=== PATIENT | male | born 1950 | race Caucasian/White ===

== ENCOUNTER 2017-03-13 05:38 | Emergency (ER) | payer OTHER ==
[2017-03-13 05:43] VITALS: BP 146/85; BMI 31.5
[2017-03-13] MEDS ORDERED: ZOFRAN INJ 4 MG VIAL ONE (05:46)
[2017-03-13] MEDS ORDERED: NS 1000 ML 1,000 ML ONE (05:52)
[2017-03-13] MEDS ORDERED: TORADOL 30 MG VIAL ONE (05:52)
[2017-03-13] MEDS ORDERED: NS 1000 ML 1,000 ML IV ONE (05:57)
[2017-03-13] MEDS ORDERED: TORADOL 30 MG VIAL IVP ONE (05:57)
[2017-03-13] MEDS ORDERED: ZOFRAN INJ 4 MG VIAL IVP ONE (05:57)
[2017-03-13 06:36] LABS: BASOPHILS % (AUTO) 0.2 % (0.2-1.0); EOSINOPHILS # (AUTO) 0.1 x10^3/uL (0.0-0.2); EOSINOPHILS % (AUTO) 0.5 % (0.9-2.9); HEMATOCRIT 40.6 % (42.0-54.0); HEMOGLOBIN 14.1 g/dL (13.5-18.0); LYMPHOCYTES # (AUTO) 0.7 X10^3/uL (1.3-2.9); MEAN CORPUSCULAR HEMOGLOBIN 29.1 pg (27.0-34.0); MEAN CORPUSCULAR HGB CONC 34.7 g/dL (33.0-35.0); MEAN CORPUSCULAR VOLUME 83.8 fL (80.0-100.0); MEAN PLATELET VOLUME 7.6 fL (7.4-11.0); MONOCYTES # (AUTO) 0.2 x10^3/uL (0.3-0.8); MONOCYTES % (AUTO) 2.2 % (0.0-13.0); NEUTROPHILS # (AUTO) 9.5 x10^3/uL (2.2-4.8); NEUTROPHILS % (AUTO) 90.1 % (42.0-75.0); PLATELET COUNT 112 X10^3/uL (150.0-450.0); RED BLOOD COUNT 4.84 X10^6/uL (4.7-6.0); RED CELL DISTRIBUTION WIDTH 14.1 % (11.6-16.5); WHITE BLOOD COUNT 10.5 X10^3/uL (3.6-10.0)
[2017-03-13 06:43] LABS: BLOOD UREA NITROGEN 16 mg/dL (7-18); CALCIUM 8.1 mg/dL (8.5-10.1); CARBON DIOXIDE 27.9 mmol/L (21-32); CHLORIDE 110 mmol/L (98-107); COR NA(FOR HYPERGLY) 147 mmol/L (136-145); CREATININE 1.14 mg/dL (0.70-1.30); GLUCOSE 134 mg/dL (65-99); SODIUM 146 mmol/L (136-145); TROPONIN I < 0.02 ng/mL (0-1.5); eGFR BLACK RACES > 60 (>60); eGFR NON BLACK RACES > 60 (>60)
--- NOTE | 2017-03-13 06:45 | DR.GENAD ---
HPI - PCP Primary Care Physician: hunter - Complaint/Symptoms Chief Complaint Doctors Comments: Abd pain with nausea and vomiting. Also chest pain and right leg and swelling and low grade fever. Chief Complaint:: pt c/o chills high blood pressure and legs hurting - Nurses notes reviewed Nurses Notes Review: Yes - Source History Provided: Patient - Mode of Arrival Mode of Arrival: Ambulatory - Timing Onset of Chief Complaint: 03/13/17 Came on: At Night - Duration Duration: Intermittent - Severity Severity: Moderate - Associated Signs and Symptoms Associated Signs and Symptoms: fever, nausea , vomiting,and loose stools. <ALIZA HORNER - Last Filed: 03/13/17 06:59> PMH - PMH Past Medical History: Yes Past Medical History: Angina, Anxiety, Diabetes, GERD, Gout, Hypertension, Kidney Stones Past Surgical History: Yes Surgical History: Angioplasty/Stents, Cholecystectomy - Family History History of Family Medical Conditions: Yes Family Medical History: Cancer, [place] - Social History Does any household member use tobacco: No Alcohol Use: None Do you use any recreational Drugs:: No Lives With: Family Lives Where: Home - infectious screening In the last 2 months have you had wt loss of >10#?: NO Have you had fever, night sweats or hemotysis?: No Have you traveled outside the country in the last 6 months?: No Isolation: Standard <ALIZA HORNER - Last Filed: 03/13/17 06:59> ROS - Review of Systems Constitutional: Chills, Fever Eyes: No Symptoms Reported ENTM: No Symptoms Reported Respiratoy: Short of Breath Cardiovascular: Chest Pain Gastrointestinal/Abdominal: Nausea, Vomiting Genitourinary: No Symptoms Reported Neurological: No Symptoms Reported Musculoskeletal: Right, Leg Integumentary: Change in Color Hematologic/Lymphatic: Blood Clots Endocrine: No Symptoms Reported Psychiatric: No Symptoms Reported All Other Systems: Reviewed and Negative <ALIZA HORNER - Last Filed: 03/13/17 06:59> PE - General Limitations: No Limitations General Appearance: Alert, In No Apparent Distress - Head Head Exam: Normal Inspection - Eyes Eye exam: Normal Appearance, PERRL, EOMI - ENT ENT Exam: Normal Exam, Mucous Membranes Moist External Ear Exam: Normal External Inspection TM/Canal Exam: Bilateral Normal Throat Exam: Normal Inspection - Neck Neck Exam: Normal Inspection - Chest Chest Inspection: Normal Inspection - Respiratory Respiratory Exam: Normal Lung Sounds Bilat Respiratory Exam: Bilateral Clear to Auscultation - Cardiovascular Cardiovascular Exam: Regular Rate, Normal Rhythm, Normal Heart Sounds - Abdominal Exam Abdominal Exam: Normal Inspection, Normal Bowel Sounds, Soft - Extremities Extremities Exam: Tenderness, Edema, Calf Tenderness, Other (R leg redness and superficial bruising with TTP) - Psychiatric Psychiatric Exam: Normal Affect, Normal Mood - Skin Skin Exam: Warm, Dry, Intact, Erythema <ALIZA HORNER - Last Filed: 03/13/17 06:59> MDM - Additional Information Additional Information Obtained From: Family - Differential Diagnosis Differential Diagnosis: PHLEBITIS, UTI, ABDOMINAL PAIN, PE, DVT <TAWANNA GARCIA - Last Filed: 03/13/17 21:32> Course - Treatment Treatment: PATIENT CONTINUE TO VOMIT. DO NOT WISH TO BE ADMITTED. DISCHARGE WITH ZOFRAN AND CIPRO. - Consultation Consultation Comments: DR. SALOMON IN ED AND SAW PATIENT. - Education/Counseling Education/Counseling: Patient, Family, Education Educated On: Diagnosis, Needs for Follow Up <TAWANNA GARCIA - Last Filed: 03/13/17 21:32> ROR - Labs Reviewed Result Diagrams: 03/13/17 06:10 03/13/17 06:10 <ALIZA HORNER - Last Filed: 03/13/17 06:59> - Labs Reviewed Laboratory Results Reviewed?: Yes Result Diagrams: 03/13/17 06:10 03/13/17 06:10 - XRAY XRAY Interpreted by: Radiologist XRAY Findings: REPORT DISCUSS WITH PATIENT. - EKG Rhythm: ST <TAWANNA GARCIA - Last Filed: 03/13/17 21:32> - Labs Reviewed Laboratory: WBC 10.5 X10^3/uL (3.6-10.0) H 03/13/17 06:10 RBC 4.84 X10^6/uL (4.7-6.0) 03/13/17 06:10 Hgb 14.1 g/dL (13.5-18.0) 03/13/17 06:10 Hct 40.6 % (42.0-54.0) L 03/13/17 06:10 MCV 83.8 fL (80.0-100.0) 03/13/17 06:10 MCH 29.1 pg (27.0-34.0) 03/13/17 06:10 MCHC 34.7 g/dL (33.0-35.0) 03/13/17 06:10 RDW 14.1 % (11.6-16.5) 03/13/17 06:10 Plt Count 112 X10^3/uL (150.0-450.0) L 03/13/17 06:10 Plt Count Comment Adequate (ADEQUATE) 03/13/17 06:10 MPV 7.6 fL (7.4-11.0) 03/13/17 06:10 Neut % 90.1 % (42.0-75.0) H 03/13/17 06:10 Lymph % 7.0 % (21.0-51.0) L 03/13/17 06:10 [place] % 2.2 % (0.0-13.0) 03/13/17 06:10 Eos % 0.5 % (0.9-2.9) L 03/13/17 06:10 Baso % 0.2 % (0.2-1.0) 03/13/17 06:10 Neut # 9.5 x10^3/uL (2.2-4.8) H 03/13/17 06:10 Lymph # 0.7 X10^3/uL (1.3-2.9) L 03/13/17 06:10 [place] # 0.2 x10^3/uL (0.3-0.8) L 03/13/17 06:10 Eos # 0.1 x10^3/uL (0.0-0.2) 03/13/17 06:10 Baso # 0.0 X10^3/uL (0.0-0.1) 03/13/17 06:10 Absolute Nucleated RBC 0.0 /100WBC 03/13/17 06:10 Total Counted 100 03/13/17 06:10 Neutrophils % (Manual) 90 % (39-76) H 03/13/17 06:10 Band Neutrophils % 4 % (0-10) 03/13/17 06:10 Lymphocytes % (Manual) 4 % (13-43) L 03/13/17 06:10 Monocytes % (Manual) 2 % (4-9) L 03/13/17 06:10 Plt Morphology Comment Normal (NORMAL) 03/13/17 06:10 RBC Morphology Normal (NORMAL) 03/13/17 06:10 INR Target Range - 03/13/17 06:10 INR 1.06 (0.8-1.3) 03/13/17 06:10 PTT 29.3 SECONDS (22.9-36.5) 03/13/17 06:10 PTT Comment - 03/13/17 06:10 D-Dimer 1260 ng/mL (0-400) H* 03/13/17 06:10 Sodium 146 mmol/L (136-145) H 03/13/17 06:10 Corrected Sodium 147 mmol/L (136-145) H 03/13/17 06:10 Potassium 3.8 mmol/L (3.5-5.1) 03/13/17 06:10 Chloride 110 mmol/L (98-107) H 03/13/17 06:10 Carbon Dioxide 27.9 mmol/L (21-32) 03/13/17 06:10 BUN 16 mg/dL (7-18) 03/13/17 06:10 Creatinine 1.14 mg/dL (0.70-1.30) 03/13/17 06:10 Est GFR (MDRD) Af Amer > 60 (>60) 03/13/17 06:10 Est GFR (MDRD) Non-Af > 60 (>60) 03/13/17 06:10 Glucose 134 mg/dL (65-99) H 03/13/17 06:10 Calcium 8.1 mg/dL (8.5-10.1) L 03/13/17 06:10 Corrected Calcium 8.7 mg/dL (8.5-10.1) 03/13/17 06:10 Total Bilirubin 0.80 mg/dL (0.2-1.0) 03/13/17 06:10 AST 18 Units/L (15-37) 03/13/17 06:10 ALT 30 Units/L (12-78) 03/13/17 06:10 Alkaline Phosphatase 73 Units/L (46-116) 03/13/17 06:10 Creatine Kinase 24 Units/L (39-308) L 03/13/17 06:10 CK-MB (CK-2) < 1.0 ng/mL (0-4.0) 03/13/17 06:10 CK/CKMB % Calc 4.2 % (<4) 03/13/17 06:10 Troponin I < 0.02 ng/mL (0-1.5) 03/13/17 06:10 Total Protein 6.5 g/dL (6.4-8.2) 03/13/17 06:10 Albumin 3.3 g/dL (3.4-5.0) L 03/13/17 06:10 Globulin 3.2 g/dL (2.5-4.5) 03/13/17 06:10 Albumin/Globulin Ratio 1.0 Ratio (1.1-2.1) L 03/13/17 06:10 Amylase 11 Units/L (25-115) L 03/13/17 06:10 Lipase 74 Units/L (73-393) 03/13/17 06:10 H. pylori IgG Antibody Negative (NEGATIVE) 03/13/17 06:10 Streptococcus Screen Negative (NEGATIVE) 03/13/17 06:17 (ALIZA HORNER) (TAWANNA GARCIA) <ALIZA HORNER - Last Filed: 03/13/17 06:59> <TAWANNA GARCIA - Last Filed: 03/13/17 21:32> - Diagnosis Discharge Problem: Phlebitis Nausea & vomiting Qualifiers: Vomiting type: bilious vomiting Qualified Code(s): R11.14 - Bilious vomiting Abdominal pain Qualifiers: Abdominal location: generalized Qualified Code(s): R10.84 - Generalized abdominal pain - Discharge Plan Disposition: 01 HOME, SELF-CARE Condition: Stable - Follow ups/Referrals Follow ups/Referrals: César Salomon [Primary Care Provider] - 3 days - Instructions Instructions: Phlebitis, [id number] Additional Instructions: RETURN TO ED IF WORSE.
[2017-03-13 06:47] LABS: ALANINE AMINOTRANSFERASE 30 Units/L (12-78); ALBUMIN 3.3 g/dL (3.4-5.0); ALKALINE PHOSPHATASE 73 Units/L (46-116); AMYLASE 11 Units/L (25-115); ASPARTATE AMINO TRANSFERASE 18 Units/L (15-37); CKMB % 4.2 % (<4); COR CA(FOR HYPOALB) 8.7 mg/dL (8.5-10.1); CREATINE KINASE 24 Units/L (39-308); CREATINE KINASE MB < 1.0 ng/mL (0-4.0); LIPASE 74 Units/L (73-393); TOTAL PROTEIN 6.5 g/dL (6.4-8.2)
--- NOTE | 2017-03-13 06:55 | CT ---
HISTORY: Nausea, vomiting Study: CT abdomen pelvis without contrast Comparison: September 04, 2016 Technique: Axial non contrast images with coronal and sagittal reformats. Dose reduction procedures were used with MA/kv adjusted for body size. This examination is limited due to the lack of intraven ous and oral contrast. Findings: The lung bases are clear. The liver, spleen, adrenal glands, and pancreas are within normal limits o nly to the limitations of an unenhanced examination. The patient is status post cholecystectomy. The kidneys are unobstructed. Bilateral 1 millimeter nonobstructing renal calculi are present single on the left and multiple on the right. There is a left renal cyst present. No ureteral calculi are esteban ntified. Calcific atherosclerotic changes present in a nondilated abdominal aorta. No enlarged intra peritoneal or retroperitoneal lymphadenopathy is identified. The appendix is normal. There are no fi ndings suggestive of diverticulitis or colitis. Examination of the pelvis demonstrated no evidence f or pelvic masses, pelvic fluid, or pelvic lymphadenopathy. Multiple bladder calculi are again identi fied varying size from 4 millimeters to 13 millimeters in size. IMPRESSION: Limited examination for the reason noted above No evidence for obstructing ureteral calculi Bilateral tiny nonobstructing renal calculi as described Multiple bladder calculi ranging in size from 4 to 13 millimeters Reported By:
--- NOTE | 2017-03-13 06:56 | RAD ---
HISTORY: Chills, fever Study: Chest one view Comparison: None Findings: The trachea is midline. The cardiac silhouette is unremarkable. The lungs are clear without focal infiltrate or effusion. The bony thorax is unremarkable. IMPRESSION: 1. No acute cardiopulmonary disease. Reported By:
[2017-03-13 07:00] LABS: BAND NEUTROPHILS % 4 % (0-10); PLATELET MORPHOLOGY COMMENT NORMAL (NORMAL)
[2017-03-13] MEDS ORDERED: NS 100 ML IV 100 ML IV ONE (07:00)
--- NOTE | 2017-03-13 07:31 | RAD ---
HISTORY: Right lower extremity pain, injury, bruising Study: Right tibia and fibula two view Comparison: None Findings: There is no evidence for fracture, lytic, or blastic lesion. No abnormal periosteal reaction or soft tissue abnormality is identified. IMPRESSION: No significant abnormality identified Reported By:
--- NOTE | 2017-03-13 07:35 | VAS ---
HISTORY: Right calf pain Study: Right lower extremity venous Doppler Comparison: None TECHNIQUE: Multiple bryan scale and color flow Doppler images of the deep venous system were obtaine d of the Right lower extremity. FINDINGS: The deep venous system of the right lower extremity was evaluated from the level of the common femor al vein through the popliteal vein. Normal color flow and augmentation can be observed. In additio n, normal compression is seen throughout the deep venous system. IMPRESSION: 1. Negative for DVT. Reported By:
--- NOTE | 2017-03-13 07:47 | CT ---
HISTORY: Elevated D-dimer. Bruising to right calf/right leg pain with chills and fever, nausea and v omiting. Study: CTA chest Comparison: No priors Technique: Multiple axial images of the chest were obtained from the thoracic inlet to the upper abd omen during the administration of IV contrast. In addition to standard multi planar reconstructions, MIP reconstructions were performed in coronal and sagittal planes. Dose reduction techniques utili zed automatic exposure control. Findings: The mediastinum does not demonstrate significant pathological lymphadenopathy. There is no pericard ial effusion observed. The thoracic aorta is normal in its contour without evidence for aneurysmal dilatation. bilateral coronary artery calcifications are present. The central pulmonary arterial sys tem does not demonstrate central filling defects to suggest pulmonary emboli. Evaluation of the lung parenchyma reveals mild cylindrical bronchiectasis. No consolidation or effus ion is seen.. No pulmonary nodule or mass can be identified. The bony thorax is unremarkable in it s appearance. The liver and adrenal glands unremarkable. There is a 4 centimeter simple appearing c yst of the left kidney. Gallbladder has been removed.. IMPRESSION: No evidence of thoracic aortic aneurysm or pulmonary embolus. Bilateral coronary artery calcifications. Mild cylindrical bronchiectasis without infiltrate, mass, adenopathy or fluid. Reported By:
[2017-03-13] MEDS ORDERED: ROCEPHIN VIAL 2 GM 2 GM in NS 50 ML IV + SPIKE MINIBAG* 50 ML IV ONE (07:57)
[2017-03-13] MEDS ORDERED: NS 100 ML IV + SPIKE MINIBAG* 100 ML IV ONE (08:02)
[2017-03-13] MEDS ORDERED: ROCEPHIN VIAL 2 GM ONE (08:02)
[2017-03-13] MEDS ORDERED: PHENERGAN INJ 25 MG ONE (09:25)
[2017-03-13] MEDS ORDERED: PHENERGAN INJ 25 MG IM ONE (09:25)
== END 2017-03-13 09:42 | disposition home or self-care (01) ==
LOC: ER 05:38
DX: I80.8 Phlebitis and thrombophlebitis of other sites (principal); R11.14 Bilious vomiting; R10.84 Generalized abdominal pain
CPT/HCPCS: 36415; 71010; 71275; 73590; 74176; 80053; 82150; 82550; 82553; 83690; 84484; 85025; 85378; 85610; 85730; 86677; 87070; 87880; 93005; 93971; 96365; 96372; 96374; 96375; 99283; A4222; J0696; J1885; J2405; J2550

== ENCOUNTER 2017-03-13 19:00 | Inpatient (IN) | payer OTHER ==
[2017-03-13] MEDS ORDERED: NS 1000 ML 1,000 ML IV ONE ×3 (19:53→21:53)
[2017-03-13] MEDS ORDERED: NS 1000 ML 1,000 ML ONE ×3 (19:56→21:04)
[2017-03-13 20:38] VITALS: BMI 31.5
[2017-03-13] MEDS ORDERED: NS 250 ML IV 250 ML IV ONE (20:52)
[2017-03-13] MEDS ORDERED: VANCOMYCIN HCL 1 GM VIAL IV SCH (21:00)
[2017-03-13] MEDS ORDERED: LEVAQUIN PREMIX IV 750 MG 750 MG/150 ML BAG IV SCH (21:00)
[2017-03-13 21:23] LABS: BASOPHILS % (AUTO) 0.2 % (0.2-1.0); EOSINOPHILS % (AUTO) 0.1 % (0.9-2.9); HEMATOCRIT 41.2 % (42.0-54.0); HEMOGLOBIN 14.1 g/dL (13.5-18.0); LYMPHOCYTES # (AUTO) 0.5 X10^3/uL (1.3-2.9); LYMPHOCYTES % (AUTO) 2.6 % (21.0-51.0); MEAN CORPUSCULAR HGB CONC 34.1 g/dL (33.0-35.0); MEAN PLATELET VOLUME 7.9 fL (7.4-11.0); MONOCYTES # (AUTO) 0.6 x10^3/uL (0.3-0.8); NEUTROPHILS # (AUTO) 18.5 x10^3/uL (2.2-4.8); NEUTROPHILS % (AUTO) 94.1 % (42.0-75.0); PLATELET COUNT 97 X10^3/uL (150.0-450.0); RED BLOOD COUNT 4.85 X10^6/uL (4.7-6.0); RED CELL DISTRIBUTION WIDTH 14.2 % (11.6-16.5); WHITE BLOOD COUNT 19.6 X10^3/uL (3.6-10.0)
[2017-03-13 21:33] LABS: ALBUMIN 2.6 g/dL (3.4-5.0); CALCIUM 7.4 mg/dL (8.5-10.1); CARBON DIOXIDE 22.2 mmol/L (21-32); COR CA(FOR HYPOALB) 8.5 mg/dL (8.5-10.1); CREATININE 2.55 mg/dL (0.70-1.30); TOTAL PROTEIN 5.8 g/dL (6.4-8.2)
[2017-03-13 22:04] LABS: BAND NEUTROPHILS % 22 % (0-10); PLATELET MORPHOLOGY COMMENT NORMAL (NORMAL)
[2017-03-13] MEDS: NS 1000 ML 1,000 ML IV SCH (22:06)
[2017-03-14] MEDS ORDERED: TYLENOL 325 MG TAB PO PRN ×2 (02:05→07:24)
[2017-03-14 03:48] LABS: BASOPHILS % (AUTO) 0.2 % (0.2-1.0); HEMATOCRIT 39.7 % (42.0-54.0); HEMOGLOBIN 13.6 g/dL (13.5-18.0); LYMPHOCYTES # (AUTO) 0.4 X10^3/uL (1.3-2.9); LYMPHOCYTES % (AUTO) 2.3 % (21.0-51.0); MEAN CORPUSCULAR HEMOGLOBIN 29.2 pg (27.0-34.0); MEAN CORPUSCULAR HGB CONC 34.3 g/dL (33.0-35.0); MEAN CORPUSCULAR VOLUME 85.1 fL (80.0-100.0); MEAN PLATELET VOLUME 8.1 fL (7.4-11.0); MONOCYTES # (AUTO) 0.3 x10^3/uL (0.3-0.8); MONOCYTES % (AUTO) 1.7 % (0.0-13.0); NEUTROPHILS # (AUTO) 16.9 x10^3/uL (2.2-4.8); NEUTROPHILS % (AUTO) 95.8 % (42.0-75.0); PLATELET COUNT 88 X10^3/uL (150.0-450.0); RED BLOOD COUNT 4.66 X10^6/uL (4.7-6.0); RED CELL DISTRIBUTION WIDTH 14.4 % (11.6-16.5); WHITE BLOOD COUNT 17.6 X10^3/uL (3.6-10.0)
[2017-03-14 04:07] LABS: ALBUMIN 2.5 g/dL (3.4-5.0); CARBON DIOXIDE 21.1 mmol/L (21-32); COR CA(FOR HYPOALB) 8.2 mg/dL (8.5-10.1); CREATININE 2.29 mg/dL (0.70-1.30); TOTAL PROTEIN 5.7 g/dL (6.4-8.2)
[2017-03-14 04:09] LABS: BAND NEUTROPHILS % 29 % (0-10); PLATELET MORPHOLOGY COMMENT NORMAL (NORMAL)
[2017-03-14 04:33] LABS: BILIRUBIN,URINE 1+ (NEGATIVE); BLOOD/HEMOGLOBIN,URINE NEGATIVE (NEGATIVE); GLUCOSE, URINE NEGATIVE (NEGATIVE); KETONES,URINE NEGATIVE (NEGATIVE); LEUKOCYTE ESTERASE ,URINE NEGATIVE (NEGATIVE); NITRITES,URINE NEGATIVE (NEGATIVE); PROTEIN,URINE 2+ (NEGATIVE); UROBILINOGEN,URINE 1+ (NORMAL)
[2017-03-14 04:34] LABS: COLOR,URINE DARK YELLOW (YELLOW)
[2017-03-14 04:38] LABS: APPEARANCE,URINE SLIGHTLY HAZY (CLEAR); BACTERIA,URINE 2+ /HPF (NEGATIVE); RBC,URINE NONE SEEN /HPF (NEGATIVE); SQUAMOUS EPITHELIAL CELL,UR RARE /HPF (NEGATIVE)
[2017-03-14] MEDS: NS 1000 ML 1,000 ML IV SCH ×4 (04:40→21:03)
[2017-03-14] MEDS ORDERED: PHARMACY CONSULT - VANCOMYCIN XX SCH (07:24)
[2017-03-14] MEDS ORDERED: NS 1000 ML 1,000 ML IV ONE (07:24)
[2017-03-14] MEDS ORDERED: CONSULT PHARMACY - ANTIBIOTIC XX SCH ×2 (07:24→16:00)
[2017-03-14] MEDS ORDERED: VANCOMYCIN 1 GM PREMIX (ADDVANTAGE) 250 ML IV SCH (07:24)
[2017-03-14] MEDS: PLAVIX PO SCH (11:40)
[2017-03-14] MEDS: ALBUMIN HUMAN 25%- 100ML 100 ML IV SCH (11:41)
[2017-03-14] MEDS: LOMOTIL PO SCH ×2 (11:45→14:56)
[2017-03-14] MEDS: ZOFRAN INJ 4 MG VIAL IVP PRN (12:40)
--- NOTE | 2017-03-14 13:10 | DR.H&P ---
H&P - History & Physical for Day of: H&P Date: 03/13/17 - Chief Complaint Chief Complaint: RIGHT LEG PAIN AND SWELLING, WEAKNESS, FEVER - Allergies Allergies/Adverse Reactions: Allergies Allergy/AdvReac Type Severity Reaction Status Date / Time No Known Drug Allergies Allergy Verified 03/14/17 06:51 - History of Present Illness History of Present Illness: IS A 66 YEAR OLD PATIENT OF OURS WHO WAS A DIRECT ADMIT FROM HOME. HE PRESENTED TO ME WITH COMPLAINTS OF RIGHT LEG PAIN, CHILLS, WEAKNESS, AND HIGH BLOOD PRESSURE. ON EXAMINATION, RIGHT LEG WAS NOTED WITH REDNESS, TENDERNESS, AND SWELLING. PATIENTS SPOUSE STATED THAT HE HAD BEEN RUNNING A FEVER THROUHOUT THE DAY. PATIENT WAS SEEN IN THE ER EARLIER TODAY AND TREATED FOR CELLULITIS. PATIENT WAS GIVEN THE OPTION FOR ADMISSION, BUT REFUSED. PATIENT WAS SENT HOME FROM ER WITH PRESCRIPTION FOR CIPRO, BUT CALLED ME WHEN HIS PAIN AND SWELLING CONTINUED TO GET WORSE. PLAN TO ADMIT PATIENT FOR FURTHER EVALUATION AND TREATMENT. WE WILL CHECK CBC, CMP, BLOOD CULTURES, AND LACTIC ACID ON ADMISSION. WE WILL START PATIENT ON IVF, LEVAQUIN, AND VANCOMYICIN. - Past Medical History Past Medical History: Angina, Anxiety, COPD, Coronary Artery Disease, Diabetes, Dyslipidemia, GERD, Gout, Hypertension, Kidney Stones, [place] - Past Surgical History Surgical History: Angioplasty/Stents, CABG/Valve Surgery, Cholecystectomy - Family History Family Medical History: Diabetes Mellitus, Cancer, [place] - Social History Does patient currently use any type of tobacco product: No Have you used tobacco products in the last 12 months: No Type of Tobacco Use: None Alcohol Use: Rarely Drug Use: None - Medications Home Medications: Carvedilol 1 tab PO BID 03/13/17 [History Confirmed 03/13/17] Clopidogrel Bisulfate [PLAVIX TAB 75 MG *] 1 tab PO DAILY 03/13/17 [History Confirmed 03/13/17] Glipizide [Glipizide XL 2.5 mg] 1 tab PO DAILY 03/13/17 [History Confirmed 03/13] Niacin [Niacin ER 1000 mg] 1 tab PO HS 03/13/17 [History Confirmed 03/13/17] Rosuvastatin Calcium [Crestor] 10 mg PO HS 03/13/17 [History Confirmed 03/13/17] Zolpidem Tartrate [AMBIEN 10 MG *] 1 tab PO HS 03/13/17 [History Confirmed 03/13] - Review of Systems Constitutional: Chills, Weakness, Malaise Eyes: No Symptoms Reported ENT: No Symptoms Reported Respiratory: No Symptoms Reported Cardiovascular: No Symptoms Reported Gastrointestinal: No Symptoms Reported Genitourinary: No Symptoms Reported Musculoskeletal: Leg Pain Skin: See HPI, Bruising, Wound Neurological: No Symptoms Reported - Physical Exam Vital Signs: Temperature 99.3 F Pulse Rate [Right Radial] 96 Respiratory Rate 15 Blood Pressure [Right Arm] 105/60 Blood Pressure [Left Arm] 149/86 Blood Pressure 146/85 O2 Sat by Pulse Oximetry 99 Oriented: Normal Eyes: Normal Ear: Normal Nose: Normal Throat: Normal Respiratory: Clear Throughout Cardiovascular: Normal : Normal Auscultation: Bowel Sounds: Normal Palpation: Normal Skin: Tender, Hot, Wound, Bruising Musculoskeletal: Leg, Swelling, Tender Psychiatric: Normal Mood Description: Calm Affect: Angry, Normal Speech Pattern: Clear - Assessment/Plan (1) Cellulitis Qualifiers: Site of cellulitis: other site Site of cellulitis of extremity: S Site of cellulitis of trunk: S Laterality: L Qualified Code(s): L03.818 - Cellulitis of other sites Status: Acute Plan: LEVAQUIN, VANCOMYCIN, MONITOR LABS, OUTLINE AREAS OF REDNESS (2) Weakness generalized Status: Acute Plan: IVF, CHECK LABS,CONTINUE TO MONITOR
--- NOTE | 2017-03-14 13:22 | PCM.PROG ---
Progress Note - Progress Note for Day of Date: 03/14/17 - Subjective Subjective: WAS ADMITTED YESTERDAY EVENING WITH RIGHT LOWER LEG CELLULITIS. ON ROUNDS, PATIENT IS ALERT AND ORIENTED. HE COMPLAINS OF PAIN TO RIGHT LEG. HE ALSO HAS COMPLAINTS OF WEAKNESS AND DIARRHEA. ON EXAMINATION, LUNGS CLEAR ON AUSCULTATION. RIGHT LEG IS NOTED WITH REDNESS AND EDEMA. WOUND NOTED TO BACK OF RIGHT LEG. PATIENT AND FAMILY STATED THAT THEY WERE IN THE ERVIN OVER THE PAST FEW DAYS AND PATIENT THINKS THAT HE MAY HAVE SCRAPED HIS LEG ON SOMETHING WHILE HE WAS IN THE WATER. VITALS THIS AM ARE 100.6, 101, 20, 100% , 116/66. LABS REPORT WBC 17.6, CHLORIDE 110, BUN 26, CREATININ 2.29, GFR 30, GLUCOSE 163, CALCIUM 7.0, CRP 169.50, ALBUMIN 2.5. BLOOD CULTURES ARE PENDING. WE WILL ORDER WOUND CULTURE OF RIGHT LEG, START ALBUMIN, AND LOMOTIL FOR DIARRHEA. WE WILL REPEAT LABS AND FOLLOW UP WITH PATIENT IN AM. - Past Medical Family Social History Past Med/Fam/Surg Hx: No changes since H&P Allergies: Allergies No Known Drug Allergies Allergy (Verified 03/14/17 06:51) - Review of Systems ROS: No change since H&P - Vital Signs and I&O's Vital Signs: Temperature 99.3 F Pulse Rate [Right Radial] 96 Respiratory Rate 15 Blood Pressure [Right Arm] 105/60 Blood Pressure [Left Arm] 149/86 Blood Pressure 146/85 O2 Sat by Pulse Oximetry 99 Intake and Output: Intake & Output 03/12/17 03/13/17 03/14/17 03/15/17 11:59 11:59 11:59 11:59 Intake Total 3797 Output Total 300 Balance 3497 - Physical Exam Oriented: Normal Eyes: Normal Ear: Normal Nose: Normal Throat: Normal Cardiovascular: Normal : Normal Auscultation: Bowel Sounds: Normal Palpation: Normal Skin: Tender, Hot, Wound Musculoskeletal: Leg, Swelling, Tender Psychiatric: Normal Mood Description: Calm Affect: Angry, Normal Speech Pattern: Clear - Laboratory and Diagnostics Result Diagrams: 03/14/17 03:18 03/14/17 03:18 Labs: 03/14/17 12:03 Leg - Right Gram Stain - Final Laboratory WBC 17.6 X10^3/uL (3.6-10.0) H 03/14/17 03:18 RBC 4.66 X10^6/uL (4.7-6.0) L 03/14/17 03:18 Hgb 13.6 g/dL (13.5-18.0) 03/14/17 03:18 Hct 39.7 % (42.0-54.0) L 03/14/17 03:18 MCV 85.1 fL (80.0-100.0) 03/14/17 03:18 MCH 29.2 pg (27.0-34.0) 03/14/17 03:18 MCHC 34.3 g/dL (33.0-35.0) 03/14/17 03:18 RDW 14.4 % (11.6-16.5) 03/14/17 03:18 Plt Count 88 X10^3/uL (150.0-450.0) L 03/14/17 03:18 Plt Count Comment Decreased (ADEQUATE) 03/14/17 03:18 MPV 8.1 fL (7.4-11.0) 03/14/17 03:18 Neut % 95.8 % (42.0-75.0) H 03/14/17 03:18 Lymph % 2.3 % (21.0-51.0) L 03/14/17 03:18 [place] % 1.7 % (0.0-13.0) 03/14/17 03:18 Eos % 0.0 % (0.9-2.9) L 03/14/17 03:18 Baso % 0.2 % (0.2-1.0) 03/14/17 03:18 Neut # 16.9 x10^3/uL (2.2-4.8) H 03/14/17 03:18 Lymph # 0.4 X10^3/uL (1.3-2.9) L 03/14/17 03:18 [place] # 0.3 x10^3/uL (0.3-0.8) 03/14/17 03:18 Eos # 0.0 x10^3/uL (0.0-0.2) 03/14/17 03:18 Baso # 0.0 X10^3/uL (0.0-0.1) 03/14/17 03:18 Absolute Nucleated RBC 0.0 /100WBC 03/14/17 03:18 Total Counted 100 03/14/17 03:18 Neutrophils % (Manual) 65 % (39-76) 03/14/17 03:18 Band Neutrophils % 29 % (0-10) H 03/14/17 03:18 Lymphocytes % (Manual) 5 % (13-43) L 03/14/17 03:18 Monocytes % (Manual) 1 % (4-9) L 03/14/17 03:18 Plt Morphology Comment Normal (NORMAL) 03/14/17 03:18 RBC Morphology Normal (NORMAL) 03/14/17 03:18 ESR 10 MM/HOUR (0-15) 03/14/17 03:18 Sodium 141 mmol/L (136-145) 03/14/17 03:18 Corrected Sodium 143 mmol/L (136-145) 03/14/17 03:18 Potassium 4.1 mmol/L (3.5-5.1) 03/14/17 03:18 Chloride 110 mmol/L (98-107) H 03/14/17 03:18 Carbon Dioxide 21.1 mmol/L (21-32) 03/14/17 03:18 BUN 26 mg/dL (7-18) H 03/14/17 03:18 Creatinine 2.29 mg/dL (0.70-1.30) H 03/14/17 03:18 Est GFR (MDRD) Af Amer 37 (>60) L 03/14/17 03:18 Est GFR (MDRD) Non-Af 30 (>60) L 03/14/17 03:18 Glucose 163 mg/dL (65-99) H 03/14/17 03:18 Lactic Acid 3.0 mmol/L (0.4-2.0) H 03/14/17 03:18 Calcium 7.0 mg/dL (8.5-10.1) L 03/14/17 03:18 Corrected Calcium 8.2 mg/dL (8.5-10.1) L 03/14/17 03:18 Total Bilirubin 0.90 mg/dL (0.2-1.0) 03/14/17 03:18 AST 26 Units/L (15-37) 03/14/17 03:18 ALT 31 Units/L (12-78) 03/14/17 03:18 Alkaline Phosphatase 53 Units/L (46-116) 03/14/17 03:18 C-Reactive Protein 169.50 mg/L (0-3.0) H 03/14/17 03:18 Total Protein 5.7 g/dL (6.4-8.2) L 03/14/17 03:18 Albumin 2.5 g/dL (3.4-5.0) L 03/14/17 03:18 Globulin 3.2 g/dL (2.5-4.5) 03/14/17 03:18 Albumin/Globulin Ratio 0.8 Ratio (1.1-2.1) L 03/14/17 03:18 Specimen Type Clean catch urine 03/14/17 04:25 Urine Color Dark yellow (YELLOW) 03/14/17 04:25 Urine Appearance Slightly hazy (CLEAR) 03/14/17 04:25 Urine pH 5.0 (5.0 - 8.0) 03/14/17 04:25 Ur Specific [place] 1.020 (1.000-1.030) 03/14/17 04:25 Urine Protein 2+ (NEGATIVE) 03/14/17 04:25 Urine Glucose (UA) Negative (NEGATIVE) 03/14/17 04:25 Urine Ketones Negative (NEGATIVE) 03/14/17 04:25 Urine Occult Blood Negative (NEGATIVE) 03/14/17 04:25 Urine Nitrite Negative (NEGATIVE) 03/14/17 04:25 Urine Bilirubin 1+ (NEGATIVE) 03/14/17 04:25 Urine Urobilinogen 1+ (NORMAL) 03/14/17 04:25 Ur Leukocyte Esterase Negative (NEGATIVE) 03/14/17 04:25 Urine RBC None seen /HPF (NEGATIVE) 03/14/17 04:25 Urine WBC 0-3 /HPF (NEGATIVE) 03/14/17 04:25 Ur Squamous Epith Cells Rare /HPF (NEGATIVE) 03/14/17 04:25 Urine Bacteria 2+ /HPF (NEGATIVE) 03/14/17 04:25 Ur Culture Indicated? Yes/culture set up 03/14/17 04:25 - Plan (1) Cellulitis Status: Acute Qualifiers: Site of cellulitis: other site Site of cellulitis of extremity: S Site of cellulitis of trunk: S Laterality: L Qualified Code(s): L03.818 - Cellulitis of other sites Plan: LEVAQUIN, VANCOMYCIN, MONITOR LABS, OUTLINE AREAS OF REDNESS (2) Weakness generalized Status: Acute Plan: IVF, CHECK LABS,CONTINUE TO MONITOR
[2017-03-14] MEDS ORDERED: NS 1000 ML 1,000 ML IV SCH (14:00)
[2017-03-14] MEDS: TYLENOL 500 MG TAB EXTRA STRENGTH PO SCH ×2 (14:56→21:00)
[2017-03-14] MEDS ORDERED: VANCOMYCIN HCL 500 MG VIAL 250 MG, VANCOMYCIN HCL 1 GM VIAL 1 GM in D5W 250 ML IV 250 ML IV SCH (15:00)
[2017-03-14] MEDS ORDERED: NS 500 ML IV 500 ML IV ONE (16:12)
[2017-03-14] MEDS: ZOSYN VIAL 3.375 GM 3.375 GM in NS 100 ML IV + SPIKE MINIBAG* 100 ML IV SCH ×2 (16:19→21:06)
[2017-03-14] MEDS: VANCOMYCIN HCL 500 MG VIAL 250 MG, VANCOMYCIN HCL 1 GM VIAL 1 GM in D5W 250 ML IV 250 ML IV SCH (16:31)
[2017-03-14] MEDS ORDERED: NS 500 ML IV 500 ML IV SCH (17:00)
[2017-03-14] MEDS: CRESTOR TAB 10 MG PO SCH (21:00)
[2017-03-14] MEDS ORDERED: ROSUVASTATIN CALCIUM 10 MG PO SCH (21:00)
[2017-03-14] MEDS: NIASPAN ER TAB 500 MG PO SCH (21:00)
[2017-03-14] MEDS ORDERED: NIACIN PO SCH (21:00)
[2017-03-15] MEDS: ZOFRAN INJ 4 MG VIAL IVP PRN ×2 (00:28→18:54)
[2017-03-15] MEDS: TYLENOL 500 MG TAB EXTRA STRENGTH PO SCH ×2 (02:03→09:23)
[2017-03-15 03:54] LABS: BASOPHILS % (AUTO) 0.2 % (0.2-1.0); HEMATOCRIT 35.9 % (42.0-54.0); HEMOGLOBIN 12.4 g/dL (13.5-18.0); LYMPHOCYTES # (AUTO) 0.5 X10^3/uL (1.3-2.9); LYMPHOCYTES % (AUTO) 4.6 % (21.0-51.0); MEAN CORPUSCULAR HEMOGLOBIN 29.6 pg (27.0-34.0); MEAN CORPUSCULAR HGB CONC 34.7 g/dL (33.0-35.0); MEAN CORPUSCULAR VOLUME 85.3 fL (80.0-100.0); MONOCYTES # (AUTO) 0.3 x10^3/uL (0.3-0.8); MONOCYTES % (AUTO) 2.3 % (0.0-13.0); NEUTROPHILS # (AUTO) 10.5 x10^3/uL (2.2-4.8); NEUTROPHILS % (AUTO) 92.9 % (42.0-75.0); PLATELET COUNT 64 X10^3/uL (150.0-450.0); RED BLOOD COUNT 4.21 X10^6/uL (4.7-6.0); RED CELL DISTRIBUTION WIDTH 14.4 % (11.6-16.5); WHITE BLOOD COUNT 11.3 X10^3/uL (3.6-10.0)
[2017-03-15 03:55] LABS: ALBUMIN 2.7 g/dL (3.4-5.0); CALCIUM 6.8 mg/dL (8.5-10.1); COR CA(FOR HYPOALB) 7.8 mg/dL (8.5-10.1); CREATININE 1.77 mg/dL (0.70-1.30); TOTAL PROTEIN 5.8 g/dL (6.4-8.2)
[2017-03-15 04:01] LABS: LACTIC ACID 1.9 mmol/L (0.4-2.0)
[2017-03-15 04:10] LABS: C-REACTIVE PROTEIN 270.7 mg/L (0-3.0)
[2017-03-15 04:18] LABS: BAND NEUTROPHILS % 37 % (0-10); PLATELET MORPHOLOGY COMMENT NORMAL (NORMAL)
[2017-03-15] MEDS: NS 1000 ML 1,000 ML IV SCH (05:05)
[2017-03-15 05:07] LABS: ERYTHROCYTE SEDIMENTATION RATE 18 MM/HOUR (0-15)
[2017-03-15] MEDS: LOMOTIL PO SCH ×3 (05:35→22:00)
[2017-03-15] MEDS: ZOSYN VIAL 3.375 GM 3.375 GM in NS 100 ML IV + SPIKE MINIBAG* 100 ML IV SCH ×3 (05:36→21:21)
[2017-03-15] MEDS ORDERED: XANAX PO ONE (07:20)
[2017-03-15] MEDS ORDERED: XANAX PO PRN ×3 (07:21→09:37)
[2017-03-15] MEDS ORDERED: LEVAQUIN PREMIX IV 750 MG 750 MG/150 ML BAG IV SCH ×2 (09:00)
[2017-03-15] MEDS: PLAVIX PO SCH (09:24)
[2017-03-15] MEDS ORDERED: TORADOL 15 MG VIAL IVP PRN (09:26)
[2017-03-15] MEDS ORDERED: PERCOCET TAB 5/325 MG PO PRN (09:26)
[2017-03-15] MEDS ORDERED: PHARMACY CONSULT - TPN XX SCH (10:00)
[2017-03-15] MEDS: VANCOMYCIN HCL 500 MG VIAL 250 MG, VANCOMYCIN HCL 1 GM VIAL 1 GM in D5W 250 ML IV 250 ML IV SCH (10:38)
--- NOTE | 2017-03-15 11:12 | PCM.PROG ---
Progress Note - Progress Note for Day of Date: 03/15/17 - Subjective Subjective: WAS ADMITTED WITH RIGHT LOWER LEG CELLULITIS. ON ROUNDS, PATIENT IS ALERT AND ORIENTED AND SITTING UP IN RECLINER. HE COMPLAINS OF PAIN TO BACK OF RIGHT LEG. HE ALSO HAS COMPLAINTS OF WEAKNESS. FAMILY STATES THAT PATIENT WAS RESTLESS THROUGHOUT THE NIGHT. ON EXAMINATION, LUNGS CLEAR ON AUSCULTATION. RIGHT LEG IS NOTED WITH REDNESS AND EDEMA. WOUND NOTED TO BACK OF RIGHT LEG, DRAINING. VITALS THIS AM ARE 98.9, 89, 20, 98, 126/73. LABS REPORT WBC 11.3, PLT COUNT 64, CHLORIDE 109, BUN 26, CREATININ 1.77, GFR 41, GLUCOSE 125, LACTIC ACID 1.9, CALCIUM 7.8, AST 48, CRP 270.70, ALBUMIN 2.7. BLOOD CULTURES ARE PENDING. WE WILL CONTINUE ALBUMIN, START TPN, TORADOL, XANAX, AND PERCOCET. ANESTHESIA WILL BE CONSULTED FOR PICC LINE PLACEMENT. WE WILL REPEAT LABS AND FOLLOW UP WITH PATIENT IN AM. - Past Medical Family Social History Past Med/Fam/Surg Hx: No changes since H&P Allergies: Allergies No Known Drug Allergies Allergy (Verified 03/14/17 06:51) - Review of Systems ROS: No change since H&P - Vital Signs and I&O's Vital Signs: Temperature 98.9 F Pulse Rate [Right Radial] 87 Respiratory Rate 21 Blood Pressure [Right Arm] 136/80 Blood Pressure [Left Arm] 149/86 Blood Pressure 146/85 O2 Sat by Pulse Oximetry 99 Intake and Output: Intake & Output 03/12/17 03/13/17 03/14/17 03/15/17 11:59 11:59 11:59 11:59 Intake Total 3797 5174 Output Total 300 1175 Balance 3497 3999 - Physical Exam Oriented: Normal Eyes: Normal Ear: Normal Nose: Normal Throat: Normal Cardiovascular: Normal : Normal Auscultation: Bowel Sounds: Normal Skin: Tender, Hot, Wound Musculoskeletal: Leg, Swelling, Tender Psychiatric: Normal Mood Description: Calm Affect: Angry, Normal Speech Pattern: Clear, Appropriate - Laboratory and Diagnostics Result Diagrams: 03/15/17 03:10 03/15/17 03:10 Labs: 03/14/17 12:03 Leg - Right Gram Stain - Final 03/14/17 12:03 Leg - Right Wound Culture - Preliminary 03/14/17 04:25 Urine,Clean Catch Urine Culture - Preliminary 03/14/17 13:27 Stool Stool Culture - Preliminary 03/14/17 13:27 Stool - Final 03/13/17 21:07 Blood Blood Culture - Preliminary Laboratory WBC 11.3 X10^3/uL (3.6-10.0) H 03/15/17 03:10 RBC 4.21 X10^6/uL (4.7-6.0) L 03/15/17 03:10 Hgb 12.4 g/dL (13.5-18.0) L 03/15/17 03:10 Hct 35.9 % (42.0-54.0) L 03/15/17 03:10 MCV 85.3 fL (80.0-100.0) 03/15/17 03:10 MCH 29.6 pg (27.0-34.0) 03/15/17 03:10 MCHC 34.7 g/dL (33.0-35.0) 03/15/17 03:10 RDW 14.4 % (11.6-16.5) 03/15/17 03:10 Plt Count 64 X10^3/uL (150.0-450.0) L 03/15/17 03:10 Plt Count Comment Decreased (ADEQUATE) 03/15/17 03:10 MPV 9.0 fL (7.4-11.0) 03/15/17 03:10 Neut % 92.9 % (42.0-75.0) H 03/15/17 03:10 Lymph % 4.6 % (21.0-51.0) L 03/15/17 03:10 [place] % 2.3 % (0.0-13.0) 03/15/17 03:10 Eos % 0.0 % (0.9-2.9) L 03/15/17 03:10 Baso % 0.2 % (0.2-1.0) 03/15/17 03:10 Neut # 10.5 x10^3/uL (2.2-4.8) H 03/15/17 03:10 Lymph # 0.5 X10^3/uL (1.3-2.9) L 03/15/17 03:10 [place] # 0.3 x10^3/uL (0.3-0.8) 03/15/17 03:10 Eos # 0.0 x10^3/uL (0.0-0.2) 03/15/17 03:10 Baso # 0.0 X10^3/uL (0.0-0.1) 03/15/17 03:10 Absolute Nucleated RBC 0.0 /100WBC 03/15/17 03:10 Total Counted 100 03/15/17 03:10 Neutrophils % (Manual) 52 % (39-76) 03/15/17 03:10 Band Neutrophils % 37 % (0-10) H 03/15/17 03:10 Lymphocytes % (Manual) 9 % (13-43) L 03/15/17 03:10 Monocytes % (Manual) 2 % (4-9) L 03/15/17 03:10 Plt Morphology Comment Normal (NORMAL) 03/15/17 03:10 RBC Morphology Normal (NORMAL) 03/15/17 03:10 ESR 18 MM/HOUR (0-15) H 03/15/17 03:10 Sodium 140 mmol/L (136-145) 03/15/17 03:10 Corrected Sodium 141 mmol/L (136-145) 03/15/17 03:10 Potassium 3.9 mmol/L (3.5-5.1) 03/15/17 03:10 Chloride 109 mmol/L (98-107) H 03/15/17 03:10 Carbon Dioxide 19.0 mmol/L (21-32) L 03/15/17 03:10 BUN 28 mg/dL (7-18) H 03/15/17 03:10 Creatinine 1.77 mg/dL (0.70-1.30) H 03/15/17 03:10 Est GFR (MDRD) Af Amer 49 (>60) L 03/15/17 03:10 Est GFR (MDRD) Non-Af 41 (>60) L 03/15/17 03:10 Glucose 125 mg/dL (65-99) H 03/15/17 03:10 Lactic Acid 1.9 mmol/L (0.4-2.0) 03/15/17 03:10 Calcium 6.8 mg/dL (8.5-10.1) L 03/15/17 03:10 Corrected Calcium 7.8 mg/dL (8.5-10.1) L 03/15/17 03:10 Total Bilirubin 1.10 mg/dL (0.2-1.0) H 03/15/17 03:10 AST 48 Units/L (15-37) H 03/15/17 03:10 ALT 42 Units/L (12-78) 03/15/17 03:10 Alkaline Phosphatase 59 Units/L (46-116) 03/15/17 03:10 C-Reactive Protein 270.70 mg/L (0-3.0) H 03/15/17 03:10 Total Protein 5.8 g/dL (6.4-8.2) L 03/15/17 03:10 Albumin 2.7 g/dL (3.4-5.0) L 03/15/17 03:10 Globulin 3.1 g/dL (2.5-4.5) 03/15/17 03:10 Albumin/Globulin Ratio 0.9 Ratio (1.1-2.1) L 03/15/17 03:10 Specimen Type Clean catch urine 03/14/17 04:25 Urine Color Dark yellow (YELLOW) 03/14/17 04:25 Urine Appearance Slightly hazy (CLEAR) 03/14/17 04:25 Urine pH 5.0 (5.0 - 8.0) 03/14/17 04:25 Ur Specific [place] 1.020 (1.000-1.030) 03/14/17 04:25 Urine Protein 2+ (NEGATIVE) 03/14/17 04:25 Urine Glucose (UA) Negative (NEGATIVE) 03/14/17 04:25 Urine Ketones Negative (NEGATIVE) 03/14/17 04:25 Urine Occult Blood Negative (NEGATIVE) 03/14/17 04:25 Urine Nitrite Negative (NEGATIVE) 03/14/17 04:25 Urine Bilirubin 1+ (NEGATIVE) 03/14/17 04:25 Urine Urobilinogen 1+ (NORMAL) 03/14/17 04:25 Ur Leukocyte Esterase Negative (NEGATIVE) 03/14/17 04:25 Urine RBC None seen /HPF (NEGATIVE) 03/14/17 04:25 Urine WBC 0-3 /HPF (NEGATIVE) 03/14/17 04:25 Ur Squamous Epith Cells Rare /HPF (NEGATIVE) 03/14/17 04:25 Urine Bacteria 2+ /HPF (NEGATIVE) 03/14/17 04:25 Ur Culture Indicated? Yes/culture set up 03/14/17 04:25 Stool Description 3g,galvez,unformed 03/14/17 13:27 Stl Occult Blood (IFOB) Negative (NEGATIVE) 03/14/17 13:27 Stool for White Cells No wbc's seen (None) 03/14/17 13:27 - Plan (1) Cellulitis Status: Acute Qualifiers: Site of cellulitis: other site Site of cellulitis of extremity: S Site of cellulitis of trunk: S Laterality: L Qualified Code(s): L03.818 - Cellulitis of other sites Plan: LEVAQUIN, VANCOMYCIN, ZOSYN, MONITOR LABS, OUTLINE AREAS OF REDNESS (2) Weakness generalized Status: Acute Plan: IVF, CHECK LABS,CONTINUE TO MONITOR (3) Hypoalbuminemia due to protein-calorie malnutrition Status: Acute Plan: ALBUMIN, START TPN, CONTINUE TO MONITOR (4) Anxiety Status: Chronic Plan: CONTINUE ALPRAZOLAM
[2017-03-15] MEDS ORDERED: TYLENOL 325 MG TAB PO PRN (11:15)
[2017-03-15] MEDS ORDERED: NS 1000 ML 1,000 ML IV SCH (14:00)
[2017-03-15] MEDS: ALBUMIN HUMAN 25%- 100ML 100 ML IV SCH (14:57)
[2017-03-15] MEDS ORDERED: LASIX IVP ONE (20:23)
[2017-03-15] MEDS ORDERED: AMBIEN PO SCH (21:00)
[2017-03-15] MEDS ORDERED: XANAX PO SCH (21:00)
[2017-03-15] MEDS: NIASPAN ER TAB 500 MG PO SCH (21:19)
[2017-03-15] MEDS: CRESTOR TAB 10 MG PO SCH (21:20)
[2017-03-15 21:58] LABS: ABG BASE EXCESS -5.2 mmol/L (-2.0-2.0); ABG HCO3 18.8 mmol/L (22-26)
[2017-03-15 21:59] LABS: ABG ALLEN TEST POS; FRACTIONATED INSPIRED OXYGEN 30
--- NOTE | 2017-03-15 22:18 | RAD ---
EXAM: Chest X-ray INDICATION: Shortness of breath COMPARISION: Prior exam from March 13, 2017 TECHNIQUE: Single view FINDINGS: The heart is mildly enlarged and there is central vascular congestion. The interstitial markings are prominent bilaterally. No pneumothorax or pleural effusion. No focal lung parenchymal consolidation identified. The regional skeleton is intact. IMPRESSION: Findings are most characteristic of changes associated congestive heart failure. There is cardiomega ly, central vascular congestion, and interstitial edema. These changes were not present on prior exa m. Reported By:
[2017-03-16 05:21] LABS: ALBUMIN 2.7 g/dL (3.4-5.0); C-REACTIVE PROTEIN 229.9 mg/L (0-3.0); CALCIUM 7.2 mg/dL (8.5-10.1); CARBON DIOXIDE 22.4 mmol/L (21-32); COR CA(FOR HYPOALB) 8.2 mg/dL (8.5-10.1); CREATININE 1.7 mg/dL (0.70-1.30); TOTAL PROTEIN 5.9 g/dL (6.4-8.2)
[2017-03-16 05:33] LABS: LACTIC ACID 1.5 mmol/L (0.4-2.0)
[2017-03-16] MEDS: ZOSYN VIAL 3.375 GM 3.375 GM in NS 100 ML IV + SPIKE MINIBAG* 100 ML IV SCH ×2 (05:39→15:13)
[2017-03-16] MEDS: LOMOTIL PO SCH ×2 (05:40→14:17)
[2017-03-16 06:19] LABS: BASOPHILS % (AUTO) 0.1 % (0.2-1.0); HEMATOCRIT 36.2 % (42.0-54.0); HEMOGLOBIN 12.8 g/dL (13.5-18.0); LYMPHOCYTES # (AUTO) 0.6 X10^3/uL (1.3-2.9); LYMPHOCYTES % (AUTO) 6.6 % (21.0-51.0); MEAN CORPUSCULAR HEMOGLOBIN 29.3 pg (27.0-34.0); MEAN CORPUSCULAR HGB CONC 35.3 g/dL (33.0-35.0); MEAN CORPUSCULAR VOLUME 82.9 fL (80.0-100.0); MEAN PLATELET VOLUME 9.1 fL (7.4-11.0); MONOCYTES # (AUTO) 0.3 x10^3/uL (0.3-0.8); MONOCYTES % (AUTO) 3.2 % (0.0-13.0); NEUTROPHILS # (AUTO) 7.9 x10^3/uL (2.2-4.8); NEUTROPHILS % (AUTO) 90.1 % (42.0-75.0); PLATELET COUNT 51 X10^3/uL (150.0-450.0); RED BLOOD COUNT 4.37 X10^6/uL (4.7-6.0); RED CELL DISTRIBUTION WIDTH 14.7 % (11.6-16.5); WHITE BLOOD COUNT 8.8 X10^3/uL (3.6-10.0)
[2017-03-16 07:12] LABS: BAND NEUTROPHILS % 3 % (0-10); PLATELET MORPHOLOGY COMMENT NORMAL (NORMAL)
[2017-03-16 07:16] LABS: ERYTHROCYTE SEDIMENTATION RATE 18 MM/HOUR (0-15)
[2017-03-16] MEDS ORDERED: PROCALAMINE 3 % 1,000 ML IV SCH ×2 (09:00→15:00)
[2017-03-16] MEDS: VANCOMYCIN HCL 500 MG VIAL 250 MG, VANCOMYCIN HCL 1 GM VIAL 1 GM in D5W 250 ML IV 250 ML IV SCH (09:00)
[2017-03-16] MEDS: PLAVIX PO SCH (09:00)
[2017-03-16] MEDS: ALBUMIN HUMAN 25%- 100ML 100 ML IV SCH (10:55)
[2017-03-16] MEDS ORDERED: K-RIDER 10 MEQ/NS 100 ML 10 MEQ/100 ML BAG IV PRN (10:58)
[2017-03-16] MEDS ORDERED: K-LYTE EFFERVESCENT PO PRN (10:58)
[2017-03-16] MEDS ORDERED: POTASSIUM CHLORIDE LIQ 20 MEQ UDC PO PRN (10:58)
[2017-03-16] MEDS ORDERED: K-DUR TAB 20 MEQ PO PRN (10:58)
[2017-03-16] MEDS ORDERED: MEGACE PO SCH (11:00)
[2017-03-16] MEDS ORDERED: PHARMACY CONSULT - TPN XX SCH (11:00)
[2017-03-16] MEDS ORDERED: PEPCID 20 MG IV PREMIX* 20 MG/50 ML BAG IV SCH (11:00)
[2017-03-16] MEDS ORDERED: XYLOCAINE 1 % (PLAIN) ONE (12:17)
[2017-03-16] MEDS: ZOFRAN INJ 4 MG VIAL IVP PRN (13:24)
--- NOTE | 2017-03-16 13:28 | RAD ---
HISTORY: PICC line placement. Study: Portable chest. Comparison: Chest x-ray dated March 15, 2017. Findings: The trachea is midline. The cardiac silhouette is enlarged but unchanged. Interval placement of a r ight PICC line whose tip is at the right cavoatrial junction. No obvious focal consolidation, pleur al effusion, or pneumothorax. The bony thorax is unremarkable. IMPRESSION: 1. No acute cardiopulmonary disease. 2. Right PICC line that appears to be in good position. Reported By:
--- NOTE | 2017-03-16 13:36 | DR.UPDATE ---
H&P Update History and Physical Update: History and Physical reviewed and patient examined. Changes noted: NO Yes with the following: Agree with H&P from Dr Salomon. will proceed with PICC placement Procedures (ALL) - Central Line Placement PCM.CLCO: written consent Time out performed: Yes Patient placed pm monitor/pulse ox: Yes MD prep: mask, gown, gloves, other Centrial line prep: chlorhexidine scrub Local anesthsia used: lidocane 1% Ultrasound used for placement: Yes Central line lumen ininserted: double Post procedure: good blood return, all ports aspirated, flushed,capped, sterile dressing applied Post procedure xray: tip oc catheter in good position, no pneumothorax seen Patient tolerated procedure: Yes Complications: none
--- NOTE | 2017-03-16 15:09 | PCM.PROG ---
Progress Note - Progress Note for Day of Date: 03/16/17 - Subjective Subjective: IS ALERT AND ORIENTED AND SITTING UP IN BED ON MORNING ROUNDS. HE COMPLAINS OF PAIN THAT HAS SLIGHTLY IMPROVED TO BACK OF RIGHT LEG. ON EXAMINATION, LUNGS CLEAR ON AUSCULTATION. RIGHT LEG IS NOTED WITH REDNESS AND EDEMA THAT HAS IMPROVED FROM YESTERDAY. WOUND NOTED TO BACK OF RIGHT LEG. PATIENT HAD EPISODE OF SHORTNESS OF BREATH AND DESATUATION INTO 80S LAST NIGHT. WE HELD TPN AND FLUIDS AND CHECKED A BLOOD GAS. VITALS THIS AM ARE 99.4, 91, 20 , 97, 119/64. LABS REPORT WBC 8.8, HGB 12.8, HCT 36.2 PLT COUNT 51, BUN 26, CREATININ 1.70, GFR 43, GLUCOSE 123, LACTIC ACID 1.5, CALCIUM 7.2, AST 42, CRP 229.90, ALBUMIN 2.7. BLOOD CULTURES ARE PENDING. WE WILL CONTINUE ALBUMIN, CONTINUE TPN, TORADOL, XANAX, AND PERCOCET. ANESTHESIA WILL BE CONSULTED FOR PICC LINE PLACEMENT. WE WILL REPEAT LABS AND FOLLOW UP WITH PATIENT IN AM. WE WILL START MEGACE FOR APPETITE, WILL RESTART TPN AND ALBUMIN, AND WILL ADVANCE TO A SOFT DIET. - Past Medical Family Social History Past Med/Fam/Surg Hx: No changes since H&P Allergies: Allergies No Known Drug Allergies Allergy (Verified 03/14/17 06:51) - Review of Systems ROS: No change since H&P - Vital Signs and I&O's Vital Signs: Temperature 99.4 F Pulse Rate [Right Radial] 84 Respiratory Rate 18 Blood Pressure [Right Arm] 140/73 Blood Pressure [Left Arm] 149/86 Blood Pressure 146/85 O2 Sat by Pulse Oximetry 95 Intake and Output: Intake & Output 03/14/17 03/15/17 03/16/17 03/17/17 11:59 11:59 11:59 11:59 Intake Total 1198 0554 1539 Output Total 300 0161 0740 Balance 9111 1824 -5299 - Physical Exam Oriented: Normal Eyes: Normal Ear: Normal Nose: Normal Throat: Normal Respiratory: Normal Cardiovascular: Normal : Normal Auscultation: Bowel Sounds: Normal Palpation: Normal Tenderness: Normal Skin: Tender, Hot, Wound Musculoskeletal: Leg, Swelling, Tender Psychiatric: Normal Mood Description: Calm Affect: Angry, Normal Speech Pattern: Clear, Appropriate - Laboratory and Diagnostics Result Diagrams: 03/16/17 04:55 03/16/17 04:55 Labs: 03/14/17 13:27 Stool Stool Culture - Final 03/14/17 13:27 Stool - Final 03/14/17 12:03 Leg - Right Gram Stain - Final 03/14/17 12:03 Leg - Right Wound Culture - Preliminary 03/14/17 04:25 Urine,Clean Catch Urine Culture - Final 03/13/17 21:07 Blood Blood Culture - Preliminary Laboratory WBC 8.8 X10^3/uL (3.6-10.0) 03/16/17 04:55 RBC 4.37 X10^6/uL (4.7-6.0) L 03/16/17 04:55 Hgb 12.8 g/dL (13.5-18.0) L 03/16/17 04:55 Hct 36.2 % (42.0-54.0) L 03/16/17 04:55 MCV 82.9 fL (80.0-100.0) 03/16/17 04:55 MCH 29.3 pg (27.0-34.0) 03/16/17 04:55 MCHC 35.3 g/dL (33.0-35.0) H 03/16/17 04:55 RDW 14.7 % (11.6-16.5) 03/16/17 04:55 Plt Count 51 X10^3/uL (150.0-450.0) L 03/16/17 04:55 Plt Count Comment Decreased (ADEQUATE) 03/16/17 04:55 MPV 9.1 fL (7.4-11.0) 03/16/17 04:55 Neut % 90.1 % (42.0-75.0) H 03/16/17 04:55 Lymph % 6.6 % (21.0-51.0) L 03/16/17 04:55 [place] % 3.2 % (0.0-13.0) 03/16/17 04:55 Eos % 0.0 % (0.9-2.9) L 03/16/17 04:55 Baso % 0.1 % (0.2-1.0) L 03/16/17 04:55 Neut # 7.9 x10^3/uL (2.2-4.8) H 03/16/17 04:55 Lymph # 0.6 X10^3/uL (1.3-2.9) L 03/16/17 04:55 [place] # 0.3 x10^3/uL (0.3-0.8) 03/16/17 04:55 Eos # 0.0 x10^3/uL (0.0-0.2) 03/16/17 04:55 Baso # 0.0 X10^3/uL (0.0-0.1) 03/16/17 04:55 Absolute Nucleated RBC 0.0 /100WBC 03/16/17 04:55 Total Counted 100 03/16/17 04:55 Neutrophils % (Manual) 89 % (39-76) H 03/16/17 04:55 Band Neutrophils % 3 % (0-10) 03/16/17 04:55 Lymphocytes % (Manual) 6 % (13-43) L 03/16/17 04:55 Monocytes % (Manual) 2 % (4-9) L 03/16/17 04:55 Plt Morphology Comment Normal (NORMAL) 03/16/17 04:55 RBC Morphology Normal (NORMAL) 03/16/17 04:55 ESR 18 MM/HOUR (0-15) H 03/16/17 04:55 Sample Site Lr 03/15/17 21:52 ABG pH 7.390 (7.35-7.45) 03/15/17 21:52 ABG pCO2 31.0 mmHg (35.0-45.0) L 03/15/17 21:52 ABG pO2 49.0 mmHg (80.0-100.0) L* 03/15/17 21:52 ABG HCO3 18.8 mmol/L (22-26) L 03/15/17 21:52 ABG O2 Saturation 84.0 % (90-100) L* 03/15/17 21:52 ABG Base Excess -5.2 mmol/L (-2.0-2.0) L 03/15/17 21:52 Avdim Test Pos 03/15/17 21:52 A-a Gradient 126.0 mmHg 03/15/17 21:52 FiO2 30 03/15/17 21:52 Blood Gas Comments Braydon well ae 03/15/17 21:52 Sodium 139 mmol/L (136-145) 03/16/17 04:55 Corrected Sodium 140 mmol/L (136-145) 03/16/17 04:55 Potassium 3.4 mmol/L (3.5-5.1) L 03/16/17 04:55 Chloride 105 mmol/L (98-107) 03/16/17 04:55 Carbon Dioxide 22.4 mmol/L (21-32) 03/16/17 04:55 BUN 26 mg/dL (7-18) H 03/16/17 04:55 Creatinine 1.70 mg/dL (0.70-1.30) H 03/16/17 04:55 Est GFR (MDRD) Af Amer 52 (>60) L 03/16/17 04:55 Est GFR (MDRD) Non-Af 43 (>60) L 03/16/17 04:55 Glucose 123 mg/dL (65-99) H 03/16/17 04:55 Lactic Acid 1.5 mmol/L (0.4-2.0) 03/16/17 04:55 Calcium 7.2 mg/dL (8.5-10.1) L 03/16/17 04:55 Corrected Calcium 8.2 mg/dL (8.5-10.1) L 03/16/17 04:55 Total Bilirubin 0.90 mg/dL (0.2-1.0) 03/16/17 04:55 AST 42 Units/L (15-37) H 03/16/17 04:55 ALT 37 Units/L (12-78) 03/16/17 04:55 Alkaline Phosphatase 83 Units/L (46-116) 03/16/17 04:55 C-Reactive Protein 229.90 mg/L (0-3.0) H 03/16/17 04:55 Total Protein 5.9 g/dL (6.4-8.2) L 03/16/17 04:55 Albumin 2.7 g/dL (3.4-5.0) L 03/16/17 04:55 Globulin 3.2 g/dL (2.5-4.5) 03/16/17 04:55 Albumin/Globulin Ratio 0.8 Ratio (1.1-2.1) L 03/16/17 04:55 Triglycerides 112 mg/dL (0-150) 03/15/17 03:10 Specimen Type Clean catch urine 03/14/17 04:25 Urine Color Dark yellow (YELLOW) 03/14/17 04:25 Urine Appearance Slightly hazy (CLEAR) 03/14/17 04:25 Urine pH 5.0 (5.0 - 8.0) 03/14/17 04:25 Ur Specific [place] 1.020 (1.000-1.030) 03/14/17 04:25 Urine Protein 2+ (NEGATIVE) 03/14/17 04:25 Urine Glucose (UA) Negative (NEGATIVE) 03/14/17 04:25 Urine Ketones Negative (NEGATIVE) 03/14/17 04:25 Urine Occult Blood Negative (NEGATIVE) 03/14/17 04:25 Urine Nitrite Negative (NEGATIVE) 03/14/17 04:25 Urine Bilirubin 1+ (NEGATIVE) 03/14/17 04:25 Urine Urobilinogen 1+ (NORMAL) 03/14/17 04:25 Ur Leukocyte Esterase Negative (NEGATIVE) 03/14/17 04:25 Urine RBC None seen /HPF (NEGATIVE) 03/14/17 04:25 Urine WBC 0-3 /HPF (NEGATIVE) 03/14/17 04:25 Ur Squamous Epith Cells Rare /HPF (NEGATIVE) 03/14/17 04:25 Urine Bacteria 2+ /HPF (NEGATIVE) 03/14/17 04:25 Ur Culture Indicated? Yes/culture set up 03/14/17 04:25 Stool Description 3g,galvez,unformed 03/14/17 13:27 Stl Occult Blood (IFOB) Negative (NEGATIVE) 03/14/17 13:27 Stool for White Cells No wbc's seen (None) 03/14/17 13:27 - Plan (1) Cellulitis Status: Acute Qualifiers: Site of cellulitis: other site Site of cellulitis of extremity: S Site of cellulitis of trunk: S Laterality: L Qualified Code(s): L03.818 - Cellulitis of other sites Plan: LEVAQUIN, VANCOMYCIN, ZOSYN, MONITOR LABS, OUTLINE AREAS OF REDNESS (2) Weakness generalized Status: Acute Plan: IVF, CHECK LABS,CONTINUE TO MONITOR (3) Hypoalbuminemia due to protein-calorie malnutrition Status: Acute Plan: ALBUMIN, START TPN, CONTINUE TO MONITOR (4) Anxiety Status: Chronic Plan: CONTINUE ALPRAZOLAM
[2017-03-16] MEDS ORDERED: CLEOCIN 600 MG IV PREMIX 600 MG/50 ML BAG IV ONE (19:00)
[2017-03-16 21:44] VITALS: BP 140/77
[2017-03-16] MEDS ORDERED: CLEOCIN 600 MG IV PREMIX 600 MG/50 ML BAG IV SCH (22:00)
== END 2017-03-16 21:15 | disposition short-term general hospital (02) | DRG 603 ==
LOC: MED/SURG 19:00 → ICU 19:15 → OBSVTOIN 03-15 09:00
PROVIDERS: ADMIT Internal Medicine; ATTEND Internal Medicine
PROC: 02HV33Z Insertion of Infusion Device into Superior Vena Cava, Percutaneous Approach (ICD-10-PCS; principal; 2017-03-16)
DX: L03.115 Cellulitis of right lower limb (principal); M79.604 Pain in right leg; M79.89 Other specified soft tissue disorders; R53.1 Weakness; F41.8 Other specified anxiety disorders; J44.9 Chronic obstructive pulmonary disease, unspecified; I25.10 Atherosclerotic heart disease of native coronary artery without angina pectoris; E11.65 Type 2 diabetes mellitus with hyperglycemia; E78.2 Mixed hyperlipidemia; K21.9 Gastro-esophageal reflux disease without esophagitis; I10 Essential (primary) hypertension; R06.02 Shortness of breath; R26.89 Other abnormalities of gait and mobility; I87.2 Venous insufficiency (chronic) (peripheral); D72.828 Other elevated white blood cell count; R94.4 Abnormal results of kidney function studies; R79.82 Elevated C-reactive protein (CRP)
CPT/HCPCS: 36415; 36600; 71010; 80053; 81001; 82270; 82803; 83605; 84478; 85025; 85652; 86140; 87040; 87045; 87070; 87086; 87205; 87427; 87899; 97535; A4222; B5200; P9047; S0028; S0179; G0378; J0077; J1940; J1956; J2001; J2405; J2543; J3370

== ENCOUNTER → 2017-12-01 | Outpatient (CLI) | payer OTHER ==
--- NOTE | 2017-12-01 13:28 | CT ---
HISTORY: Low back pain Study: Noncontrast CT scan of the abdomen pelvis Comparison: 03/13/2017. Technique: Non contrasted CT images of the abdomen and pelvis are reviewed in axial, coronal and sagi ttal planes. Dose reduction techniques utilized automatic exposure control. Findings: Lung bases are clear. The liver, spleen, pancreas adrenal glands are normal. Gallbladder surgically a bsent. Bilateral perinephric renal stranding is seen. There is 3.9 cm simple cyst extending laterally from the upper pole of the left kidney. A 2 mm stone is present in the lower pole of the right kidne y which is nonobstructing. Very tiny nonobstructing stones are seen in the lower pole left kidney als o. There is left-sided hydronephrosis and hydroureter secondary to a 3.6 mm stone very near the urete ral vesicle orifice on the left. There are 2 large bladder stones present these measure 1.2 and 1.5 c m respectively. No evidence of bowel obstruction or perforation is seen. There is moderate generalize d stool present throughout the colon. No significant prostatic enlargement is seen. There is degenera tive disc disease present at L4-5 and L5-S1. Atherosclerotic calcifications are present involving the martínez of the abdominal aorta without aneurysm formation. No mesenteric or retroperitoneal adenopathy is seen. There is no evidence of free intraperitoneal air or fluid. IMPRESSION: 3. 6 mm obstructing stone present at the level very near the ureterovesical orifice on the left. Left-sided hydronephrosis and hydroureter. Small bilateral nonobstructing kidney stones. Fairly large bladder stones as described above. Not only made these be the source of pain, these may function as a nidus for infection. Simple cyst of the left kidney. Reported By:
== END ==
LOC: RAD 11:51
PROVIDERS: ATTEND Nurse Practitioner Family
DX: M54.5 Low back pain (principal); R10.32 Left lower quadrant pain; R31.0 Gross hematuria; Z87.442 Personal history of urinary calculi; N20.0 Calculus of kidney
CPT/HCPCS: 74176

== ENCOUNTER 2018-01-27 18:30 | Observation (INO) | payer OTHER ==
[2018-01-27] MEDS ORDERED: MORPHINE SULFATE INJ 2 MG INJ IVP PRN (18:34)
[2018-01-27] MEDS ORDERED: TORADOL 30 MG VIAL ONE (18:48)
[2018-01-27] MEDS ORDERED: TORADOL 30 MG VIAL IVP SCH (19:00)
[2018-01-27 19:02] LABS: BASOPHILS % (AUTO) 0.5 % (0.2-1.0); EOSINOPHILS # (AUTO) 0.1 x10^3/uL (0.0-0.2); HEMATOCRIT 42.1 % (42.0-54.0); HEMOGLOBIN 14.9 g/dL (13.5-18.0); LYMPHOCYTES # (AUTO) 2.1 X10^3/uL (1.3-2.9); LYMPHOCYTES % (AUTO) 23.6 % (21.0-51.0); MEAN CORPUSCULAR HEMOGLOBIN 29.3 pg (27.0-34.0); MEAN CORPUSCULAR HGB CONC 35.5 g/dL (33.0-35.0); MEAN CORPUSCULAR VOLUME 82.5 fL (80.0-100.0); MEAN PLATELET VOLUME 7.6 fL (7.4-11.0); MONOCYTES # (AUTO) 0.8 x10^3/uL (0.3-0.8); MONOCYTES % (AUTO) 8.4 % (0.0-13.0); NEUTROPHILS % (AUTO) 66.5 % (42.0-75.0); PLATELET COUNT 164 X10^3/uL (150.0-450.0); RED CELL DISTRIBUTION WIDTH 12.4 % (11.6-16.5)
[2018-01-27] MEDS: NS 1000 ML 1,000 ML IV SCH (19:06)
[2018-01-27 19:15] LABS: ALANINE AMINOTRANSFERASE 26 Units/L (12-78); ALKALINE PHOSPHATASE 82 Units/L (46-116); ASPARTATE AMINO TRANSFERASE 18 Units/L (15-37); BLOOD UREA NITROGEN 17 mg/dL (7-18); CALCIUM 8.1 mg/dL (8.5-10.1); CARBON DIOXIDE 28.5 mmol/L (21-32); CHLORIDE 100 mmol/L (98-107); COR NA(FOR HYPERGLY) 137 mmol/L (136-145); CREATININE 1.25 mg/dL (0.70-1.30); SODIUM 136 mmol/L (136-145); TOTAL PROTEIN 7.5 g/dL (6.4-8.2); eGFR BLACK RACES > 60 (>60); eGFR NON BLACK RACES > 60 (>60)
[2018-01-27 19:20] LABS: BILIRUBIN,URINE NEGATIVE (NEGATIVE); BLOOD/HEMOGLOBIN,URINE 5+ (NEGATIVE); GLUCOSE, URINE NEGATIVE (NEGATIVE); KETONES,URINE NEGATIVE (NEGATIVE); LEUKOCYTE ESTERASE ,URINE 1+ (NEGATIVE); NITRITES,URINE NEGATIVE (NEGATIVE); PROTEIN,URINE 4+ (NEGATIVE); UROBILINOGEN,URINE NORMAL (NORMAL)
[2018-01-27] MEDS ORDERED: TORADOL 15 MG VIAL IVP PRN (19:24)
[2018-01-27 19:28] LABS: COLOR,URINE BLOODY (YELLOW)
[2018-01-27 19:29] LABS: APPEARANCE,URINE SLIGHTLY HAZY (CLEAR); BACTERIA,URINE TRACE /HPF (NEGATIVE); RBC,URINE TNTC /HPF (NONE SEEN); SQUAMOUS EPITHELIAL CELL,UR NEGATIVE /HPF (NEGATIVE)
--- NOTE | 2018-01-27 20:49 | RAD ---
HISTORY: Urinary retention Study: KUB Comparison: None Findings: The abdominal gas pattern is nonspecific and nonobstructive. No abnormal calcifications or abnormal m asses are identified. The bladder does not appear to be distended. IMPRESSION: Unremarkable KUB Reported By:
[2018-01-27] MEDS ORDERED: TORADOL 15 MG VIAL IVP SCH (23:45)
[2018-01-27 23:51] VITALS: BMI 31.5
[2018-01-28] MEDS: TORADOL 15 MG VIAL IVP SCH ×2 (00:59→06:37)
[2018-01-28 05:36] LABS: BASOPHILS % (AUTO) 0.3 % (0.2-1.0); EOSINOPHILS # (AUTO) 0.1 x10^3/uL (0.0-0.2); EOSINOPHILS % (AUTO) 1.2 % (0.9-2.9); HEMATOCRIT 35.4 % (42.0-54.0); HEMOGLOBIN 12.6 g/dL (13.5-18.0); LYMPHOCYTES # (AUTO) 2.3 X10^3/uL (1.3-2.9); LYMPHOCYTES % (AUTO) 29.6 % (21.0-51.0); MEAN CORPUSCULAR HGB CONC 35.7 g/dL (33.0-35.0); MEAN CORPUSCULAR VOLUME 81.4 fL (80.0-100.0); MEAN PLATELET VOLUME 7.9 fL (7.4-11.0); MONOCYTES # (AUTO) 0.6 x10^3/uL (0.3-0.8); MONOCYTES % (AUTO) 8.1 % (0.0-13.0); NEUTROPHILS # (AUTO) 4.7 x10^3/uL (2.2-4.8); NEUTROPHILS % (AUTO) 60.8 % (42.0-75.0); PLATELET COUNT 140 X10^3/uL (150.0-450.0); RED BLOOD COUNT 4.35 X10^6/uL (4.7-6.0); RED CELL DISTRIBUTION WIDTH 12.8 % (11.6-16.5); WHITE BLOOD COUNT 7.7 X10^3/uL (3.6-10.0)
[2018-01-28 05:41] LABS: ALANINE AMINOTRANSFERASE 21 Units/L (12-78); ALKALINE PHOSPHATASE 66 Units/L (46-116); ASPARTATE AMINO TRANSFERASE 12 Units/L (15-37); BLOOD UREA NITROGEN 17 mg/dL (7-18); CALCIUM 7.4 mg/dL (8.5-10.1); CARBON DIOXIDE 26.3 mmol/L (21-32); CHLORIDE 107 mmol/L (98-107); COR CA(FOR HYPOALB) 8.2 mg/dL (8.5-10.1); CREATININE 1.06 mg/dL (0.70-1.30); SODIUM 140 mmol/L (136-145); TOTAL PROTEIN 5.8 g/dL (6.4-8.2); eGFR BLACK RACES > 60 (>60); eGFR NON BLACK RACES > 60 (>60)
[2018-01-28] MEDS: NS 1000 ML 1,000 ML IV SCH (08:10)
[2018-01-28 09:47] VITALS: BP 125/61
--- NOTE | 2018-02-02 21:59 | DR.CARTERS ---
Short Stay Summary - Short Stay Summary for: Short Stay Summary for Date of:: 01/28/18 - Admission Date Date of Admission: 01/27/18 - Discharge Date Discharge Date: 01/28/18 - Admission Diagnoses (1) Acute urinary retention Status: Acute (2) Status post laser lithotripsy of ureteral calculus Status: Acute - Hospital Course Hospital Course: is a 67 year old patient of ours who presented to the hospital as a direct admission with reports of being unable to void. Patient reported that he had lithotripsy on 01/27/18 and has been unable to urinate since procedure. Patient reported severe pain to lower abdomen. Patient admitted as observation for further evaluation and treatment. On admission, vitals were 98, 56, 22, 99% RA, 141/65. Labs were obtained. Abnormal Labs included the following: MCHC 35.5 , Glucose 140, Calcium 8.1, Total Bilribuin 1.10. A mckeon was inserted on arrival to the hospital and was noted with 500ml of bloody urine return. Urinalysis revealed: Catherized, Bloody, Slightly Hazy, Protein 4+, Occult Blood 5+, Leuk Est 1+, RBC Tntc, WBC 0-2, Bacteria Trace. Patient reported almost immediate releif in pain upon insertion of catheter. KUB reported: Unremarkable KUB. He was started on Morphine 1-2mg IV Q4hr PRN, NS @75ml/hr, and Toradol 15mg IV Q6hr PRN. We planned to follow up with AM labs and continue to monitor patient. On the morning following admission, patient was alert and oriented, lying in bed on morning rounds. He continued with slight abdominal pain, but reports much improvement since admission. Mckeon catheter noted to bedside drainage with dark tea colored urine. His vitals were 98.7-78-17-98%-137/66. He was hemodynamically stable. We spoke with patients urologist who recommended leaving catheter in place until his follow up appointment. We planned for discharge. Instructions for catheter care and management as well as follow-up were discussed with patient. He verbalized understanding of all orders. Patient discharged to home in stable condition with catheter connected to leg bag. He is instructed to continue his home medications and to follow up in the office next week. - Discharge Medications Discharge Medications: Levofloxacin 1 tab PO QAM 01/27/18 [History] Tamsulosin HCl 1 cap PO QAM 01/27/18 [History] - Discharge Plan Disposition: 01 HOME, SELF-CARE Condition: Good - Follow up/Referrals Follow up/Referrals: César Salomon [Primary Care Provider] - 02/02/18 10:00 am - Instructions Instructions: Indwelling Urinary Catheter Care, Adult, Diabetes Mellitus and Sick Day Management, Kidney Stones, [id number] Additional Instructions: diet as tolerated. activity as tolerated. leave catheter in.
== END 2018-01-28 12:25 | disposition home or self-care (01) | DRG 696 ==
LOC: INTOOBSV 18:30 → ICU 18:30
PROVIDERS: ADMIT Internal Medicine; ATTEND Internal Medicine
DX: R33.8 Other retention of urine (principal); E11.65 Type 2 diabetes mellitus with hyperglycemia; Z79.899 Other long term (current) drug therapy; Z98.890 Other specified postprocedural states; Z79.01 Long term (current) use of anticoagulants; R82.99 Other abnormal findings in urine
CPT/HCPCS: 36415; 74018; 80053; 81001; 85025; A4222; G0378; J1885